=== PATIENT | female | born 1935 | race Caucasian/White ===

== ENCOUNTER 2019-06-12 16:36 | Inpatient (IN) | payer OTHER ==
[~2019-06-12] VITALS: Ht 162.6 cm; Wt 114.3 kg
[2019-06-12 17:09] LABS: BASOPHILS % (AUTO) 0.3 % (0.0-5.0); EOSINOPHILS % (AUTO) 0.1 % (0.0-8.0); HEMATOCRIT 41.1 % (36-48); LYMPHOCYTES % (AUTO) 2.5 % (21.0-51.0); MEAN CORPUSCULAR HEMOGLOBIN 26.8 pg (27.0-33.0); MEAN CORPUSCULAR HGB CONC 33.8 g/dL (32.0-36.0); MEAN CORPUSCULAR VOLUME 79.3 fL (79-99); MONOCYTES % (AUTO) 2.9 % (3.0-13.0); NEUTROPHILS % (AUTO) 92.9 % (40.0-77.0); PLATELET COUNT (AUTO) 145 K/uL (130-400); RED BLOOD CELL COUNT(AUTO) 5.18 MIL/uL (4.00-5.50); RED CELL DISTRIBUTION WIDTH 20.7 % (11.0-15.5)
[2019-06-12 17:12] LABS: WHITE BLOOD COUNT (AUTO) 32.2 K/uL (4.8-10.8)
[2019-06-12 17:22] LABS: INR 1.25 (0.85-1.15); PARTIAL THROMBOPLASTIN TIME 34.3 SEC (26.3-35.5); PROTHROMBIN TIME 13.4 SEC (9.6-11.6)
[2019-06-12] MEDS ORDERED: CEFTRIAXONE SODIUM 2 GM VIAL ONE (17:42)
[2019-06-12 17:53] LABS: BAND NEUTROPHILS % (MANUAL) 2 % (0-2); LYMPHOCYTES % (MANUAL) 1 % (22-44); MAN.DIFF COMMENT-IMPRESSION MANUAL DIFFERENTIAL; SEGMENTED NEUTROPHILS % 97 % (40-70)
[2019-06-12 17:54] LABS: PLATELET MORPHOLOGY COMMENT ADEQUATE
[2019-06-12 18:02] LABS: ALANINE AMINOTRANSFERASE 75 U/L (12-78); ALBUMIN 1.9 g/dL (3.5-5.0); ASPARTATE AMINOTRANSFERASE 230 U/L (10-37); BILIRUBIN,TOTAL 8.6 mg/dL (0.2-1.0); CARBON DIOXIDE 19 mmol/L (21-32); CHLORIDE 91 mmol/L (101-111); CREATINE KINASE, TOTAL 93 U/L (21-232); CREATININE 3.8 mg/dL (0.5-1.5); GLOMERULAR FILTR. RATE CALC 12 mL/min (>60); GLUCOSE,RANDOM 117 mg/dL (70-105); MYOGLOBIN 173 ng/mL (10-92); SODIUM SERUM 125 mmol/L (136-145); TOTAL PROTEIN, SERUM 5.2 g/dL (6.0-8.3); TROPONIN I < 0.04 ng/mL (0.00-0.06)
[2019-06-12 18:05] LABS: UREA NITROGEN, BLOOD 113 mg/dL (7-18)
[2019-06-12 18:17] LABS: APPEARANCE,URINE SL CLOUDY (CLEAR); BILIRUBIN,URINE LARGE (NEGATIVE); COLOR,URINE BROWN (YELLOW); GLUCOSE, URINE (UA) NEGATIVE (NEGATIVE); KETONES,URINE 5 mg/dL (NEGATIVE); LEUKOCYTE ESTERASE ,URINE NEGATIVE (NEGATIVE); NITRATE,URINE POSITIVE (NEGATIVE); OCCULT BLOOD,URINE MODERATE (NEGATIVE); PROTEIN,URINE TRACE mg/dL (NEGATIVE)
[2019-06-12] MEDS ORDERED: CALCIUM GLUCONATE 1 GM/10 ML VIAL IV ONE (18:25)
[2019-06-12] MEDS ORDERED: SODIUM BICARB 50MEQ 50ML VIAL ONE (18:25)
[2019-06-12] MEDS ORDERED: INSULIN HUMULIN R 100 UNIT/ML 3ML ONE (18:26)
[2019-06-12] MEDS ORDERED: DEXTROSE 50%-WATER 50 ML DISP.SYRIN IV ONE (18:27)
[2019-06-12 18:30] LABS: BACTERIA,URINE Many /HPF (None Seen); MUCUS,URINE Few LPF (None Seen); SQUAMOUS EPITHELIAL CELL,UR Moderate /HPF (0-2)
[2019-06-12] MEDS ORDERED: ALBUTEROL SULFATE 0.083% 2.5 MG/3 ML INH IH ONE (18:31)
[2019-06-12] MEDS: SODIUM CHLORIDE 0.9% 1000ML 1,000 ML IV SCH (19:15)
[2019-06-12] MEDS ORDERED: ONDANSETRON HCL 4 MG/2 ML VIAL IV PRN (19:15)
[2019-06-12] MEDS ORDERED: ALBUMIN (HUMAN) 25% 50 ML IV SCH ×2 (19:15→20:15)
[2019-06-12] MEDS ORDERED: GLUCAGON 1MG KIT 1 MG ML IM PRN (19:30)
[2019-06-12] MEDS ORDERED: DEXTROSE 50%-WATER 50 ML DISP.SYRIN IV PRN (19:30)
[2019-06-12] MEDS: PHARMACY COMMUNICATION MISC SCH (20:00)
[2019-06-12] MEDS ORDERED: ALBUMIN (HUMAN) 25% 50 ML IV ONE (20:26)
[2019-06-12] MEDS ORDERED: FAMOTIDINE/PF 20 MG/2 ML VIAL IV ONE (20:35)
[2019-06-12] MEDS ORDERED: ZOSYN 3.375GM+NS 50ML 50 ML IV ONE (20:35)
[2019-06-12] MEDS: ZOSYN 3.375GM+NS 50ML 50 ML IV SCH (21:00)
[2019-06-12] MEDS ORDERED: SODIUM CHLORIDE 0.9% 1000ML 1,000 ML IV SCH (22:45)
[2019-06-12] MEDS ORDERED: MEROPENEM 500 MG VIAL ONE (23:47)
[2019-06-13] VITALS (21 sets, daily range): BP systolic 87–145; BP diastolic 30–109
[2019-06-13] MEDS ORDERED: CEFTRIAXONE SODIUM 1 GM ONE (03:39)
[2019-06-13 03:47] LABS: BASOPHILS % (AUTO) 0.2 % (0.0-5.0); EOSINOPHILS % (AUTO) 0.2 % (0.0-8.0); HEMATOCRIT 41.1 % (36-48); LYMPHOCYTES % (AUTO) 1.8 % (21.0-51.0); MEAN CORPUSCULAR HEMOGLOBIN 26.7 pg (27.0-33.0); MEAN CORPUSCULAR HGB CONC 31.1 g/dL (32.0-36.0); MEAN CORPUSCULAR VOLUME 85.8 fL (79-99); MONOCYTES % (AUTO) 2.7 % (3.0-13.0); NEUTROPHILS % (AUTO) 93.9 % (40.0-77.0); PLATELET COUNT (AUTO) 120 K/uL (130-400); RED BLOOD CELL COUNT(AUTO) 4.79 MIL/uL (4.00-5.50); RED CELL DISTRIBUTION WIDTH 21.8 % (11.0-15.5)
[2019-06-13] MEDS: PHARMACY COMMUNICATION MISC SCH ×2 (04:00)
[2019-06-13] MEDS: SODIUM CHLORIDE 0.9% 1000ML 1,000 ML IV SCH ×2 (04:00→15:38)
[2019-06-13 04:19] LABS: ALBUMIN 1.8 g/dL (3.5-5.0); BILIRUBIN,DIRECT 7.4 mg/dL (0.0-0.3); BILIRUBIN,TOTAL 8.4 mg/dL (0.2-1.0); CREATININE 3.2 mg/dL (0.5-1.5); POTASSIUM 5.1 mmol/L (3.5-5.1); TOTAL PROTEIN, SERUM 4.8 g/dL (6.0-8.3)
[2019-06-13] MEDS ORDERED: CEFTRIAXONE SODIUM 1 GM IVP SCH (06:00)
--- NOTE | 2019-06-13 08:00 | NUR ---
TAKEN TO MRI FOR MRCP AND BACK WITHOUT INCIDENT VS STABLE
--- NOTE | 2019-06-13 08:30 | NUR ---
SPOKE TO SON GINETTE WITH UPDATE ON PTS STATUS. PT WAS ABLE TO SPEAK TO HIM WELL OVER THE PHONE
--- NOTE | 2019-06-13 09:00 | NUR ---
DR KIMBALL CALLED AND STATED THERE IS NO NEED FOR ERCP TODAY
[2019-06-13] MEDS: FAMOTIDINE/PF 20 MG/2 ML VIAL IV SCH (09:05)
[2019-06-13] MEDS: ZOSYN 3.375GM+NS 50ML 50 ML IV SCH ×2 (09:06→20:07)
[2019-06-13] MEDS ORDERED: MIDODRINE HCL 5 MG TABLET PO SCH ×2 (09:30)
[2019-06-13 11:40] LABS: CREATININE,URINE RANDOM 272 mg/dL (30-135); SODIUM,URINE RANDOM < 15 mmol/l (40-220)
[2019-06-13] MEDS: LIDOCAINE 5% TOPICAL PATCH TP SCH (14:45)
--- NOTE | 2019-06-13 14:51 | NUR ---
[facility] CM spoke to pt's son Trenton Rodriguez discussed dc plans. Pt is independent prior to admission, lives at home with spouse. Pt has a cane. Denies any other equipments/services. Per son currently coordinating to have a provider at home for pt brent/Kavita through [facility]. DC plan to home once stable. CM to cont to follow up. Addendum: 06/13/19 at 1453 by SARAH ADKINS LVN CM Amended: Links added.
[2019-06-13 15:00] LABS: ABG BASE EXCESS -8.3 mmol/L (-2.0-3.0); ABG HCO3 15.4 mmol/L (21.0-28.0); ABG OXYGEN SATURATION 97.1 % (95.0-99.0); ABG PCO2 28 mmHg (32-45)
[2019-06-13] MEDS ORDERED: HEPARIN SODIUM 5000UNIT/ML 1ML VIAL SQ SCH (15:15)
[2019-06-13] MEDS: MIDODRINE HCL 5 MG TABLET PO SCH ×2 (15:35→20:07)
[2019-06-13] MEDS ORDERED: ZOSYN 3.375GM+NS 50ML 50 ML IV ONE (19:50)
[2019-06-13] MEDS: HEPARIN SODIUM 5000UNIT/ML 1ML VIAL SQ SCH (20:06)
[2019-06-13] MEDS: ACETAMINOPHEN 325 MG TAB PO PRN (20:21)
[2019-06-14] VITALS (11 sets, daily range): BP systolic 95–123; BP diastolic 43–69
--- NOTE | 2019-06-14 01:10 | NUR ---
Patient was taken down for procedure.Will attempt to initiate Physical Therapy Evaluation tomorrow 06/15/2019. Addendum: 06/14/19 at 1530 by SRIDEVI PANIAGUA, PT PT Amended: Links added.
[2019-06-14] MEDS: SODIUM CHLORIDE 0.9% 1000ML 1,000 ML IV SCH ×2 (04:01→22:20)
[2019-06-14 04:03] LABS: BASOPHILS % (AUTO) 0.2 % (0.0-5.0); EOSINOPHILS % (AUTO) 0.2 % (0.0-8.0); HEMATOCRIT 39.9 % (36-48); LYMPHOCYTES % (AUTO) 2.1 % (21.0-51.0); MEAN CORPUSCULAR HEMOGLOBIN 27.3 pg (27.0-33.0); MEAN CORPUSCULAR HGB CONC 33.6 g/dL (32.0-36.0); MEAN CORPUSCULAR VOLUME 81.4 fL (79-99); MONOCYTES % (AUTO) 2.8 % (3.0-13.0); PLATELET COUNT (AUTO) 92 K/uL (130-400); RED CELL DISTRIBUTION WIDTH 22.2 % (11.0-15.5)
[2019-06-14 04:10] LABS: WHITE BLOOD COUNT (AUTO) 33.5 K/uL (4.8-10.8)
[2019-06-14 04:37] LABS: ALBUMIN 1.7 g/dL (3.5-5.0); BILIRUBIN,TOTAL 9.2 mg/dL (0.2-1.0); CREATININE 2.8 mg/dL (0.5-1.5); POTASSIUM 4.7 mmol/L (3.5-5.1); TOTAL PROTEIN, SERUM 4.5 g/dL (6.0-8.3)
[2019-06-14] MEDS: FAMOTIDINE/PF 20 MG/2 ML VIAL IV SCH (08:27)
[2019-06-14] MEDS: LIDOCAINE 5% TOPICAL PATCH TP SCH (08:28)
[2019-06-14] MEDS: ZOSYN 3.375GM+NS 50ML 50 ML IV SCH ×2 (08:28→21:39)
[2019-06-14] MEDS: MIDODRINE HCL 5 MG TABLET PO SCH ×3 (09:00→21:39)
[2019-06-14] MEDS: HEPARIN SODIUM 5000UNIT/ML 1ML VIAL SQ SCH ×2 (09:00→21:41)
[2019-06-14] MEDS ORDERED: MIDAZOLAM HCL 1 MG/ML 2ML VIAL ONE (12:20)
[2019-06-14] MEDS ORDERED: FENTANYL CITRATE PF 50 MCG/1 ML 2ML VIAL ONE (12:20)
--- NOTE | 2019-06-14 12:42 | NUR ---
STATUS PT TAKEN TO IR FOR LIVER BX VIA BED. TELE VIRGEN REMOVED.
--- NOTE | 2019-06-14 14:05 | NUR ---
U/S GUIDED BIOPSY OF LIVER NODULE PROCEDURE PERFORMED BY DR. LAWS. PUNCTURE SITE RIGHT UPPER QUADRANT OF ABDOMEN. PATIENT TOLERATED PROCEDURE WELL. SPECIMEN X 3 COLLECTED. SENT TO LAB. END OF PROCEDURE AT 1411. FLOSEAL PLACED TO SITE BIOPSY NEEDLE REMOVED AND DRESSING APPLIED. NO BLEEDING NOTED. CALLED REPORT TO SAUL BYRNE. PATIENT TRANSPORTED TO 4TH FLOOR, RM 404, VIA BED AT 1455. PT STABLE, AAO X 2 WITH NO C/O PAIN.
--- NOTE | 2019-06-14 14:15 | NUR ---
WOUND CARE CONSULT WOUND CARE NURSE HERE TO EVAL PT. PT TO BE EVALUATED TOMORROW, SINCE PT HAVING LIVER BX DONE @ THIS TIME.
--- NOTE | 2019-06-14 14:30 | NUR ---
STATUS PT RECEIVED FROM IR S/P LIVER BX. A/O X 2. NO DISTRESS NOTED. O2 NC @ 2L. DIET TO BE RESUMED.
[2019-06-14] MEDS: ACETAMINOPHEN 325 MG TAB PO PRN (14:56)
[2019-06-15 03:43] LABS: BASOPHILS % (AUTO) 0.2 % (0.0-5.0); EOSINOPHILS % (AUTO) 0.1 % (0.0-8.0); HEMATOCRIT 37.7 % (36-48); LYMPHOCYTES % (AUTO) 1.4 % (21.0-51.0); MEAN CORPUSCULAR HEMOGLOBIN 27.1 pg (27.0-33.0); MEAN CORPUSCULAR HGB CONC 32.6 g/dL (32.0-36.0); MONOCYTES % (AUTO) 2.4 % (3.0-13.0); NEUTROPHILS % (AUTO) 94.2 % (40.0-77.0); PLATELET COUNT (AUTO) 95 K/uL (130-400); RED BLOOD CELL COUNT(AUTO) 4.54 MIL/uL (4.00-5.50); RED CELL DISTRIBUTION WIDTH 22.9 % (11.0-15.5)
[2019-06-15 04:07] VITALS: BP 124/62
[2019-06-15 04:07] LABS: WHITE BLOOD COUNT (AUTO) 32.7 K/uL (4.8-10.8)
[2019-06-15 04:10] LABS: ALBUMIN 1.5 g/dL (3.5-5.0); BILIRUBIN,TOTAL 9.1 mg/dL (0.2-1.0); POTASSIUM 5.5 mmol/L (3.5-5.1); TOTAL PROTEIN, SERUM 4.2 g/dL (6.0-8.3)
--- NOTE | 2019-06-15 06:45 | NUR ---
PATIENT UPDATE Pt confused and disoriented, screaming at the top of her voice, oriented to person only. Head of the bed up, repositioned in the bed q 2 hrs.With gen edema, lien legs swollen. marked hematoma in the lien groin area, some blistered areas, some popped out, abd pad applied. Was given a bedbath and 1 hr after started pulling out her iv line, blood all over the place, pt was given a second bedbath. FC patent, urine dark abelardo.WBC today at 32.7 fr 33.5 yesterday.
[2019-06-15 07:30] VITALS: BP 122/69
--- NOTE | 2019-06-15 08:20 | NUR ---
MD STATUS UPDATE REPORTED PATIENT CONDITION TO DR HOLLINS. POTASSIUM LEVEL OF 5.5, WBC 32.2, PATIENT CONFUSED X4, HR 92, BP 122/69, PATIENT APPEARS JAUNDICED, TACHYPNEIC 30, RESTLESS, PULLING OUT IV'S. DR HOLLINS CAME UP TO SEE PATIENT AND HE SPOKE TO PATIENTS SON JAMARI CEJA OVER THE PHONE. PATIENT WILL BE MADE COMFORT MEASURES ONLY PER FAMILY REQUEST.
[2019-06-15] MEDS ORDERED: SODIUM POLYSTYRENE SULFONATE 15 GM/60 ML ML PO SCH (08:45)
[2019-06-15] MEDS ORDERED: SODIUM BICARBONATE 650 MG TAB PO SCH (09:00)
[2019-06-15] MEDS ORDERED: ACETAMINOPHEN 325 MG TAB PO PRN (09:15)
[2019-06-15] MEDS ORDERED: ACETAMINOPHEN 650 MG SUPPOSITORY RC PRN (09:15)
[2019-06-15] MEDS ORDERED: ARTIFICAL TEARS SOL 15 ML OU PRN (09:15)
[2019-06-15] MEDS ORDERED: MORPHINE SULFATE 2 MG/ML 1ML SYG IVP PRN (09:15)
[2019-06-15] MEDS ORDERED: LORAZEPAM 2 MG/ML 1 ML VIAL IVP PRN (09:15)
[2019-06-15] MEDS ORDERED: ONDANSETRON HCL 4 MG/2 ML VIAL IVP PRN (09:15)
[2019-06-15] MEDS ORDERED: SCOPOLAMINE HYDROBROMIDE 1 EACH ADH..PATCH TD SCH (09:15)
[2019-06-15] MEDS ORDERED: DEXAMETHASONE SOD PHOSPHATE 4 MG/ML 1ML VIAL IVP PRN (09:15)
--- NOTE | 2019-06-15 09:29 | NUR ---
As per Nursing to HOLD Physical Therapy Evaluation until further notice from MD secondary to low blood Pressure 68/41. Addendum: 06/15/19 at 0931 by SRIDEVI PANIAGUA, PT PT Amended: Links added.
--- NOTE | 2019-06-15 15:24 | NUR ---
PRONOUNCEMENT CALLED TO ROOM BY PRIMARY NURSE, PATIENT IS DNR AND COMFORT MEASURES. PATIENT IS UNRESPONSIVE, NO HEART TONES, NO RESPIRATIONS, CN IN ATTENDANCE. PATIENT PRONOUNCED AT THIS TIME, FAMILY NOTIFIED.
--- NOTE | 2019-06-15 15:45 | NUR ---
CRISTELA ARCHIBALD CALLED REFERENCE NUMBER [id number] SPOKE TO MAYI PRATT. PATIENT RULED OUT DUE TO AGE.
== END 2019-06-15 15:24 | disposition expired | DRG 871 ==
LOC: EDH 16:36 → EDHIP 19:13 → DAHIP 06-13 02:27 → 4AH 06-13 18:24
PROVIDERS: ADMIT Internal Medicine; ATTEND Internal Medicine
PROC: 0FB23ZX Excision of Left Lobe Liver, Percutaneous Approach, Diagnostic (ICD-10-PCS; principal; 2019-06-14)
DX: A41.9 Sepsis, unspecified organism (principal); E43 Unspecified severe protein-calorie malnutrition; K72.00 Acute and subacute hepatic failure without coma; R65.21 Severe sepsis with septic shock; N17.9 Acute kidney failure, unspecified; N39.0 Urinary tract infection, site not specified; E87.1 Hypo-osmolality and hyponatremia; G93.49 Other encephalopathy; Z68.41 Body mass index [BMI] 40.0-44.9, adult; E86.0 Dehydration; D69.6 Thrombocytopenia, unspecified; E11.22 Type 2 diabetes mellitus with diabetic chronic kidney disease; E66.01 Morbid (severe) obesity due to excess calories; E78.00 Pure hypercholesterolemia, unspecified; E78.5 Hyperlipidemia, unspecified; E87.5 Hyperkalemia; F32.9 Major depressive disorder, single episode, unspecified; I12.9 Hypertensive chronic kidney disease with stage 1 through stage 4 chronic kidney disease, or unspecified chronic kidney disease; K21.9 Gastro-esophageal reflux disease without esophagitis; K57.90 Diverticulosis of intestine, part unspecified, without perforation or abscess without bleeding; K74.60 Unspecified cirrhosis of liver; N18.9 Chronic kidney disease, unspecified; N28.1 Cyst of kidney, acquired; R62.7 Adult failure to thrive; Z51.5 Encounter for palliative care; Z66 Do not resuscitate; R53.81 Other malaise; Z74.01 Bed confinement status; Z79.899 Other long term (current) drug therapy; Z83.3 Family history of diabetes mellitus
CPT/HCPCS: 36415; 36600; 49180; 71045; 74176; 74181; 76700; 76942; 80053; 80061; 80076; 81001; 82105; 82140; 82378; 82550; 82570; 82803; 82948; 83605; 83874; 83880; 84132; 84145; 84300; 84443; 84484; 85025; 85610; 85730; 86316; 87040; 87088; 88307; 88341; 88342; 88360; 93005; 94640; 99152; 99153; 99291; G0378; J0610; J0696; J1644; J1815; J2185; J2250; J2543; J3010; J3490; J7030; J7070; P9047